=== PATIENT | male | born 1940 | race Caucasian/White ===

== ENCOUNTER 2020-02-15 10:24 | Emergency (ER) | payer MEDICARE ==
[~2020-02-15] VITALS: Ht 172.7 cm; Wt 73.1 kg
[~2020-02-15 10:24] MED LIST: AVAPRO150 MG PO; CALCIUM + VITA1 EACH PO; CALCIUM 600 +1 EAC2; CATAPRES0.1 MG PO; CHLORTHALIDONE25 MG PO; CO Q 10 PO; ECOTRIN325 MG PO; EFFIENT10 MG PO; FISH OIL 1,0001 EAC2 PO; LANOXIN125 MCG PO; LIPITOR40 MG PO; MAGNESIUM OXID400 MG PO; MICARDIS20 MG PO; MULTI-VITAMIN1 EACH PO; NIASPAN500 MG PO; RANEXA1000 MG PO; TOPROL XL100 MG PO; VITAMIN C500 M1 PO; VITAMIN D PO; WELCHOL625 MG PO; ZETIA10 MG PO; [UNRECOGNIZED DRUG - OTHER]
--- NOTE | 2020-02-15 10:38 | Emergency Department Note ---
History of Present Illnes History of Present Illness Chief Complaint: Extremity Trauma/Pain History of Present Illness This is a 79 year old male, with history of hypertension, h yperlipidemia, coronary artery disease status post stent placement 2 on Effient, who presents with a four-day history of persistent bleeding from a skin tear on his left forearm. Patient states that he inadvertently hit a door in his house with his left arm, as he was walking through the house, which caused a skin tear. Patient has been applying a bandage to the area and cleaning it once daily. However, the bleeding has persisted. As stated, patient is on Effient due to previous stent placement. Patient denies any pain in the left arm, and he has full range of motion. He also has no numbness, tingling, or weakness of the left upper extremity. Historian: Patient Arrival Mode: Car Firmware Developer Required: No Onset (how long ago): day(s) (4) Location: left forearm Quality: bleeding Radiation: Reports non-radiation Severity: moderate Onset quality: sudden Duration (how long): day(s) (4) Timing of current episode: constant Progression: unchanged Chronicity: new Context: Reports trauma/injury (ran into a door, with his left forearm;); Denies recent illness Relieving factors: none Exacerbating factors: none Associated symptoms: Denies chest pain, Denies fever/chills, Denies nausea/vomiting (all), Denies shortness of breath, Denies weakness Treatments prior to arrival: none Risk factors: on Effient, due to cardiac stents x 2; Past Medical/Family History Physician Review I have reviewed the patient's past medical and family history. Any updates have been documented here. Past Medical History Recent Fever: No Clinical Suspicion of Infectio: No New/Unexplained Change in Ment: No Past Medical History: Hypertension, CAD (s/p stent placement x 2;) Other Medical History: anemia HYPERLIPIDEMIA premature ventricular contractions. Past Surgical History: Back Surgery, Cataract Removal Other Surgery: Status post exploratory laparotomy with right ileocolectomy because of the perforated retrocecal appendicitis. Status post left heart catheterization. cataract surgery Social History Smoking Cessation: Never Smoker Alcohol Use: None Any Illegal Drug Use: No TB Exposure/Symptoms: No Physically hurt or threatened: No Family History Family history of heart diseas: Yes Other Last Tetanus: UNK Any Pre-Existing Lines (PICC,: No Is patient up to date on immun: No Review of Systems Review of Systems Constitutional: Denies chills, Denies fever EENTM: Reports no symptoms Cardiovascular: Denies chest pain, Denies palpitations Respiratory: Denies cough, Denies pain on inspiration, Denies pain with cough, Denies dyspnea Gastrointestinal: Denies abdominal pain, Denies nausea, Denies vomiting Genitourinary: Reports no symptoms Musculoskeletal: Reports no symptoms Integumentary: Reports other (4 cm, irregular shaped skin tear of dorsal aspect of left forearm;) Neurological: Reports no symptoms Psychological: Reports no symptoms Endocrine: Reports no symptoms Review of other systems: All other systems negative Physical Exam Related Data Allergies: Coded Allergies: morphine (Verified Allergy, Mild, RASH, 05/03/10) Vital signs reviewed: Yes Physical Exam CONSTITUTIONAL Constitutional: Present well-developed, Present well-nourished; Absent ill appearing HENT HENT: Present normocephalic, Present atraumatic, Present oropharynx clear/moist, Present nose normal HENT L/R: Present left ext ear normal, Present right ext ear normal EYES Eyes: Reports PERRL, Reports conjunctivae normal NECK Neck: Present ROM normal PULMONARY Pulmonary: Present effort normal, Present breath sounds normal CARDIOVASCULAR Cardiovascular: Present regular rhythm, Present heart sounds normal, Present capillary refill normal, Present normal rate GASTROINTESTINAL Abdominal: Present soft; Absent tender GENITOURINARY Genitourinary: Present exam deferred SKIN Skin: Present other (3 cm long, irregular shaped skin tear on dorsal aspect of left forearm, actively oozing; no swelling or tenderness;) MUSCULOSKELETAL Musculoskeletal: Present ROM normal NEUROLOGICAL Neurological: Present alert, Present oriented x 3 PSYCHOLOGICAL Psychological: Present mood/affect normal, Present thought content normal Assessment & Plan Medical Decision Making MDM - Keep the left arm wrapped and dressed for the next 48 hours, then gently removed the bandage, saturating the dressing that is directly overlying the wound with water, and then gently remove the dressing. If oozing recurs, apply antibiotic ointment, and then apply a pressure dressing. - Return to the ED, if bleeding recurs, and is uncontrollable. - Contact her production truck driver, to see if he can stop the Effient for 2-3 days, so that the wound can form a scab and heal. - Follow-up, with any signs of infection, including redness, warmth, tenderness, or purulent drainage from the wound site. Assessment & Plan Final Impression: (1) Skin tear of left forearm without complication (2) Hypertension (3) Hyperlipidemia Depart Disposition: HOME, SELF-group home Meds Reported Medications Irbesartan (AVAPRO) 150 Mg Tablet, 75 MG PO BID 09/12/16 Prasugrel Hcl (EFFIENT) 10 Mg Tablet, 10 MG PO DAILY, #30 TAB 09/12/16 Ranolazine (RANEXA) 1,000 Mg Tab.er.12h, 500 MG PO BID 09/12/16 Clonidine Hcl (CATAPRES) 0.1 Mg Tablet, 0.1 MG PO DAILY 11/26/13 Atorvastatin Calcium (LIPITOR) 40 Mg Tablet, 40 MG PO DAILY 11/26/13 Niacin (NIASPAN) 500 Mg Tab.er.24h, 500 MG PO DAILY 11/26/13 [Co Q 10] No Conflict Check, 200 MG PO DAILY 11/26/13 Metoprolol Succinate (TOPROL XL) 100 Mg Tab.er.24h, 25 MG PO BID 11/26/13 Ezetimibe (ZETIA) 10 Mg Tablet, 10 MG PO DAILY 11/26/13 Digoxin (LANOXIN) 125 Mcg Tablet, 0.25 MCG PO DAILY take 1/2 tablet daily 11/26/13 Discontinued Reported Medications Chlorthalidone (CHLORTHALIDONE) 25 Mg Tablet, 15 MG PO DAILY 09/12/16 BIJAN ALBERTO MD Feb 15, 2020 10:38
[2020-02-15] MEDS ORDERED: DIPHTH/TETANUS/ACEL. PERTUSSIS 0.5 ML SYR IM ONE (11:15)
[2020-02-15] MEDS ORDERED: TETANUS/DIPHTHERIA TOX ADULT 0.5 ML SYR ONE (11:19)
[2020-02-15] MEDS ORDERED: SILVER NITRATE SWABS ONE ×2 (11:41→11:48)
== END 2020-02-15 12:06 | disposition home or self-care (01) ==
LOC: FSED 11:00
DX: S51.812A Laceration without foreign body of left forearm, initial encounter (principal); I10 Essential (primary) hypertension; E78.5 Hyperlipidemia, unspecified; I25.10 Atherosclerotic heart disease of native coronary artery without angina pectoris; Z95.5 Presence of coronary angioplasty implant and graft; W22.8XXA Striking against or struck by other objects, initial encounter; Y92.019 Unspecified place in single-family (private) house as the place of occurrence of the external cause; Z88.5 Allergy status to narcotic agent
CPT/HCPCS: 90471; 90714; 96372; 99283

== ENCOUNTER 2021-11-10 09:18 | Emergency (ER) | payer MEDICARE ==
[~2021-11-10] VITALS: Ht 172.7 cm; Wt 74.8 kg
[2021-11-10] MEDS ORDERED: BACITRACIN ZINC 0.9GM TP ONE (11:30)
== END 2021-11-10 12:08 | disposition home or self-care (01) ==
LOC: FSED 09:25
DX: S51.812A Laceration without foreign body of left forearm, initial encounter (principal); S40.022A Contusion of left upper arm, initial encounter; X58.XXXA Exposure to other specified factors, initial encounter; I10 Essential (primary) hypertension; E78.5 Hyperlipidemia, unspecified; I25.10 Atherosclerotic heart disease of native coronary artery without angina pectoris; D64.9 Anemia, unspecified; Z79.01 Long term (current) use of anticoagulants
CPT/HCPCS: 99283

== ENCOUNTER 2021-11-20 15:05 | Outpatient (RCR) | payer MEDICARE ==
[~2021-11-20 15:05] MED LIST changes: +LIDOCAINE VISC 2% SOLN 15 ML UDC ONE; +MUPIROCIN 2% OINT 22 GM TUBE ONE
== END 2021-12-02 ==
LOC: WCC 15:05
PROVIDERS: ATTEND Plastic Surgery
DX: S51.802A Unspecified open wound of left forearm, initial encounter (principal); D59.9 Acquired hemolytic anemia, unspecified; I10 Essential (primary) hypertension; E78.5 Hyperlipidemia, unspecified; I25.10 Atherosclerotic heart disease of native coronary artery without angina pectoris; W45.8XXA Other foreign body or object entering through skin, initial encounter

== ENCOUNTER → 2022-05-16 | Outpatient (CLI) | payer MEDICARE ==
[~2022-05-16] MED LIST changes: -LIDOCAINE VISC 2% SOLN 15 ML UDC ONE; -MUPIROCIN 2% OINT 22 GM TUBE ONE
== END ==
LOC: MRI 10:31
PROVIDERS: ATTEND Internal Medicine Cardiovascular Disease
DX: I65.8 Occlusion and stenosis of other precerebral arteries (principal)
CPT/HCPCS: 70551